=== PATIENT | female | born 1960 | race Caucasian/White ===

== ENCOUNTER 2017-03-05 04:57 | Emergency (ER) | payer BC ==
[2017-03-05 05:24] VITALS: BMI 38.9
--- NOTE | 2017-03-05 05:43 | PDOC ---
History of Present Illness - General History Source: Patient Exam Limitations: No Limitations <Carmel Landrum - Last Filed: 03/05/17 05:51> - General History Source: Patient <Forrest Wasserman - Last Filed: 03/05/17 19:37> - General Chief Complaint: Palpitations Stated Complaint: PALPITATIONS Time Seen by Provider: 03/05/17 05:43 - History of Present Illness Initial Comments: 03/05/17 05:49 Patient is a 56 year old female with pmhx of HTN who presents to the ED with palpitations. Patient states that she awoke from her sleep with pressure like sensation localized to her mid sternum that developed into palpitations. Symptoms have resolved on their own but she notes that she experienced the following symptoms 2-3 times before but she never followed up with a cyber security analyst or PMD. She states that she presented today because she became concerned. Patient states that she is compliant with her hypertension medication. (Carmel Landrum) Past History <Carmel Landrum - Last Filed: 03/05/17 05:51> - Suicide/Smoking/Psychosocial Hx Smoking History: Never smoked Have you smoked in the past 12 months: No Information on smoking cessation initiated: No Hx Alcohol Use: No Drug/Substance Use Hx: No <Forrest Wasserman - Last Filed: 03/05/17 19:37> - Past Medical History Allergies/Adverse Reactions: Allergies Allergy/AdvReac Type Severity Reaction Status Date / Time No Known Allergies Allergy Verified 03/05/17 05:22 Home Medications: Ambulatory Orders Levothyroxine [Synthroid -] 88 mcg PO DAILY 03/05/17 Metoprolol ER-Hctz 100-12.5 mg 10 mg PO DAILY 03/05/17 Review of Systems - Review of Systems Able to Perform ROS?: Yes <Carmel Landrum - Last Filed: 03/05/17 05:51> <Forrest aWsserman - Last Filed: 03/05/17 19:37> - Review of Systems Comments:: 03/05/17 05:50 CONSTITUTIONAL: Absent: fever, chills, diaphoresis, generalized weakness, malaise, loss of appetite HEENT: Absent: rhinorrhea, nasal congestion, throat pain, throat swelling, difficulty swallowing, mouth swelling, ear pain, eye pain, visual Changes CARDIOVASCULAR: Present: palpitations Absent: chest pain, syncope, irregular heart rate, lightheadedness, peripheral edema RESPIRATORY: Absent: cough, shortness of breath, dyspnea with exertion, orthopnea, wheezing, stridor, hemoptysis GASTROINTESTINAL: Absent: abdominal pain, abdominal distension, nausea, vomiting, diarrhea, constipation, melena, hematochezia GENITOURINARY: Absent: dysuria, frequency, urgency, hesitancy, hematuria, flank pain, genital pain MUSCULOSKELETAL: Absent: myalgia, arthralgia, joint swelling SKIN: Absent: rash, itching, pallor HEMATOLOGIC/IMMUNOLOGIC: Absent: easy bleeding, easy bruising, lymphadenopathy, frequent infections ENDOCRINE: Absent: unexplained weight gain, unexplained weight loss, heat intolerance, cold intolerance NEUROLOGIC: Absent: headache, focal weakness or paresthesias, dizziness, unsteady gait, seizure, mental status changes, bladder or bowel incontinence PSYCHIATRIC: Absent: anxiety, depression, suicidal or homicidal ideation, hallucinations. (Carmel Landrum) *Physical Exam <Carmel Landrum - Last Filed: 03/05/17 05:51> <Forrest Wasserman - Last Filed: 03/05/17 19:37> - Vital Signs Last Vital Signs Temp Pulse Resp BP Pulse Ox 98.4 F 86 19 138/98 96 03/05/17 10:14 03/05/17 10:14 03/05/17 10:14 03/05/17 10:14 03/05/17 10:14 - Physical Exam Comments: 03/05/17 05:50 GENERAL: Well developed, well nourished. Awake and alert. In no acute distress. HEENT: Normocephalic, atraumatic. PERRLA, EOMI. No conjunctival pallor. Sclerae are non -icteric. Moist mucous membranes. Oropharynx is clear. NECK: Supple. Full ROM. No JVD. Carotid pulses 2+ and symmetric, without bruits. No thyromegaly. No lymphadenopathy. CARDIOVASCULAR: Regular rate and rhythm. No murmurs, rubs, or gallops. Distal pulses are 2+ and symmetric. PULMONARY: No evidence of respiratory distress. Lungs clear to auscultation bilaterally. No wheezing, rales or rhonchi. ABDOMINAL: Soft. Non-tender. Non-distended. No rebound or guarding. No organomegaly. Normoactive bowel sounds. MUSCULOSKELETAL Normal range of motion at all joints. No bony deformities or tenderness. No CVA tenderness. EXTREMITIES: No cyanosis. No clubbing. No edema. No calf tenderness. SKIN: Warm and dry. Normal capillary refill. No rashes. No jaundice. NEUROLOGICAL: Alert, awake, appropriate. Cranial nerves 2-12 intact. No deficits to light touch and temperature in face, upper extremities and lower extremities. No motor deficits in the in face, upper extremities and lower extremities. Normoreflexic in the upper and lower extremities. Normal speech. Toes are downgoing bilaterally. Gait is normal without ataxia PSYCHIATRIC: Cooperative. Good eye contact. Appropriate mood and affect. (Carmel Landrum) ED Treatment Course <Carmel Landrum - Last Filed: 03/05/17 05:51> - LABORATORY CBC & Chemistry Diagram: 03/05/17 06:32 03/05/17 08:07 <Forrest Wasserman - Last Filed: 03/05/17 19:37> - ADDITIONAL ORDERS Additional order review: Laboratory Results 03/05/17 03/05/17 03/05/17 08:07 07:32 07:32 Sodium 139 Cancelled Potassium 4.2 Cancelled Chloride 103 Cancelled Carbon Dioxide 25 Cancelled Anion Gap 11 Cancelled BUN 11 Cancelled Creatinine 0.7 Cancelled Creat Clearance w eGFR > 60 Cancelled Random Glucose 163 H Cancelled Calcium 9.0 Cancelled Total Bilirubin 0.6 Cancelled AST 21 Cancelled ALT 38 Cancelled Alkaline Phosphatase 159 H Cancelled Creatine Kinase 115 Troponin I < 0.02 Total Protein 7.5 Cancelled Albumin 4.1 Cancelled Total Amylase Cancelled Lipase 87 Cancelled Urine Color Urine Appearance Urine pH Ur Specific Otis Urine Protein Urine Glucose (UA) Urine Ketones Urine Blood Urine Nitrite Urine Bilirubin Urine Urobilinogen Urine RBC Urine WBC Ur Epithelial Cells Urine Bacteria Urine Mucus 03/05/17 06:32 Sodium Potassium Chloride Carbon Dioxide Anion Gap BUN Creatinine Creat Clearance w eGFR Random Glucose Calcium Total Bilirubin AST ALT Alkaline Phosphatase Creatine Kinase Troponin I Total Protein Albumin Total Amylase Lipase Urine Color Straw Urine Appearance Clear Urine pH 8.0 Ur Specific Otis 1.020 Urine Protein 2+ H Urine Glucose (UA) Negative Urine Ketones Negative Urine Blood 1+ H Urine Nitrite Negative Urine Bilirubin Negative Urine Urobilinogen Negative Urine RBC 2 Urine WBC 2 Ur Epithelial Cells Few Urine Bacteria Rare Urine Mucus Rare 03/05/17 06:32 RBC 4.85 MCV 86.1 MCHC 34.7 RDW 13.4 MPV 7.6 Neutrophils % 68.4 Lymphocytes % 22.1 Monocytes % 6.2 Eosinophils % 2.1 Basophils % 1.2 - RADIOLOGY Radiology Studies Ordered: Category Date Time Status CHEST X-RAY PORTABLE* [RAD] Stat Radiology 03/05/17 06:17 Completed 03/05/17 05:51 NS at 96 bpm Possible left atrial enlargement Prolonged QT Abnormal ECG (Carmel Landrum) Medical Decision Making <Carmel Landrum - Last Filed: 03/05/17 05:51> <Forrest Wasserman - Last Filed: 03/05/17 19:37> - Medical Decision Making 03/05/17 19:35 Dr. Wasserman: The scribe's documentation has been prepared under my direction and personally reviewed by me in its entirery. I confirm that the note above accurately reflects all work, treatment, procedures, and medical decision making performed by me. (Forrest Wasserman) *DC/Admit/Observation/Transfer <Carmel Landrum - Last Filed: 03/05/17 05:51> - Discharge Dispostion Admit: No <Forrest Wasserman - Last Filed: 03/05/17 19:37> Diagnosis at time of Disposition: Palpitations - Discharge Dispostion Disposition: HOME Condition at time of disposition: Good - Patient Instructions Printed Discharge Instructions: DI for Palpitations Additional Instructions: You were evaluated in the Emergency Department for palpitations. Please call [facility] at within the next 7 days to make an appointment with a doctor to establish primary care and for referral to a cyber security analyst. Please return to the Emergency Department should you experience a worsening of your symptoms, or chest pain or severe discomfort. - Attestations Scribe Attestion: 03/05/17 05:51 Documentation prepared by VICTOR HUGO Lambert, acting as medical coder for Forrest Wasserman DO. (Carmel Landrum)
[2017-03-05 06:55] LABS: BASOPHIL 1.2 % (0-2.0); EOSINOPHIL 2.1 % (0-4.5); MCH 29.9 pg (25.7-33.7); MCHC 34.7 g/dl (32.0-36.0); MEAN CELL VOLUME 86.1 fl (80-96); MEAN PLT VOLUME 7.6 fl (7.5-11.1); NEUTROPHILS 68.4 % (42.8-82.8); PLATELET COUNT 259 K/MM3 (134-434); RDW 13.4 % (11.6-15.6); URINE APPEARANCE CLEAR; URINE BILIRUBIN NEGATIVE (NEGATIVE); URINE BLOOD 1+ (NEGATIVE); URINE COLOR STRAW; URINE GLUCOSE (UA) NEGATIVE (NEGATIVE); URINE KETONE NEGATIVE (NEGATIVE); URINE LEUK ESTERASE NEGATIVE (NEGATIVE); URINE NITRITE NEGATIVE (NEGATIVE); URINE UROBILINOGEN NEGATIVE mg/dL (0.2-1.0); WHITE BLOOD COUNT 8.4 K/mm3 (4.0-10.0)
[2017-03-05 07:07] LABS: URINE PROTEIN 2+ (NEGATIVE)
[2017-03-05 07:23] LABS: INR 0.96 (0.82-1.09); PROTHROMBIN TIME (PATIENT) 10.6 SEC (9.98-11.88)
--- NOTE | 2017-03-05 07:29 | PDOC ---
*Physical Exam - Vital Signs Last Vital Signs Temp Pulse Resp BP Pulse Ox 98.0 F 100 H 18 134/121 97 03/05/17 05:22 03/05/17 05:22 03/05/17 05:22 03/05/17 05:22 03/05/17 05:22 - Physical Exam General Appearance: Yes: Nourished, Obese HEENT: positive: EOMI, DARIN Neck: positive: Trachea midline, Supple Respiratory/Chest: positive: Lungs Clear Cardiovascular: positive: Regular Rhythm, Regular Rate, S1, S2 Gastrointestinal/Abdominal: positive: Soft Extremity: positive: Normal Capillary Refill, Normal Inspection Neurologic: positive: Fully Oriented, Alert ED Treatment Course - LABORATORY CBC & Chemistry Diagram: 03/05/17 06:32 03/05/17 08:07 - ADDITIONAL ORDERS Additional order review: Laboratory Results 03/05/17 03/05/17 03/05/17 06:32 06:32 06:32 PT with INR INR Sodium Cancelled Potassium Cancelled Chloride Cancelled Carbon Dioxide Cancelled Anion Gap Cancelled BUN Cancelled Creatinine Cancelled Creat Clearance w eGFR Cancelled Random Glucose Cancelled Calcium Cancelled Magnesium Cancelled Total Bilirubin Cancelled AST Cancelled ALT Cancelled Alkaline Phosphatase Cancelled Creatine Kinase Cancelled Troponin I Cancelled B-Natriuretic Peptide Cancelled Total Protein Cancelled Albumin Cancelled Total Amylase Cancelled Lipase Cancelled Urine Color Straw Urine Appearance Clear Urine pH 8.0 Urine Protein 2+ H Urine Glucose (UA) Negative Urine Ketones Negative Urine Blood 1+ H Urine Nitrite Negative Urine Bilirubin Negative Urine Urobilinogen Negative 03/05/17 06:32 PT with INR 10.60 INR 0.96 Sodium Potassium Chloride Carbon Dioxide Anion Gap BUN Creatinine Creat Clearance w eGFR Random Glucose Calcium Magnesium Total Bilirubin AST ALT Alkaline Phosphatase Creatine Kinase Troponin I B-Natriuretic Peptide Total Protein Albumin Total Amylase Lipase Urine Color Urine Appearance Urine pH Urine Protein Urine Glucose (UA) Urine Ketones Urine Blood Urine Nitrite Urine Bilirubin Urine Urobilinogen 03/05/17 06:32 RBC 4.85 MCV 86.1 MCHC 34.7 RDW 13.4 MPV 7.6 Neutrophils % 68.4 Lymphocytes % 22.1 Monocytes % 6.2 Eosinophils % 2.1 Basophils % 1.2 Medical Decision Making - Medical Decision Making 03/05/17 07:28 Patient resting comfortably, states palpitations have resolved completely. 03/05/17 09:44 Troponin (-) x1, CMP shows no electrolyte abnormalities. Mildly elevated BS ( 163) Patient counseled extensively on importance of establishing primary care and given a copy of her labs to bring to her PCP appointment. Patient counseled to return to ED should she experience repeat palpitations, shortness of breath or chest pain. *DC/Admit/Observation/Transfer Diagnosis at time of Disposition: Palpitations - Discharge Dispostion Disposition: HOME Condition at time of disposition: Good Admit: No - Patient Instructions Printed Discharge Instructions: DI for Palpitations Additional Instructions: You were evaluated in the Emergency Department for palpitations. Please call [facility] at within the next 7 days to make an appointment with a doctor to establish primary care and for referral to a pharmacy technologist. Please return to the Emergency Department should you experience a worsening of your symptoms, or chest pain or severe discomfort.
[2017-03-05 08:45] LABS: URINE BACTERIA RARE /hpf (NONE SEEN); URINE MUCUS RARE; URINE WBC 2 /hpf (3-5)
[2017-03-05 08:47] LABS: URINE RBC 2 /hpf (0-3)
[2017-03-05 09:09] LABS: ALBUMIN 4.1 g/dl (3.4-5.0); ANION GAP 11 (8-16); BILIRUBIN,TOTAL 0.6 mg/dL (0.2-1.0); CO2 25 mmol/L (21-32); CREATININE 0.7 mg/dL (0.55-1.02); GLUCOSE,RANDOM 163 mg/dL (74-106); SGOT/AST 21 U/L (15-37); SGPT/ALT 38 U/L (12-78); TOT PROT 7.5 g/dl (6.4-8.2)
[2017-03-05 09:12] LABS: ALK PHOS 159 U/L (45-117); CPK 115 IU/L (26-192); TROPONIN I < 0.02 ng/ml (0.00-0.05)
[2017-03-05 10:14] VITALS: BP 138/98; PULSE 86; TEMP 98.4
--- NOTE | 2017-03-05 10:41 | EKG ---
Test Reason : Blood Pressure : / mmHG Vent. Rate : 096 BPM Atrial Rate : 096 BPM P-R Int : 172 ms QRS Dur : 088 ms QT Int : 394 ms P-R-T Axes : 049 021 051 degrees QTc Int : 497 ms NORMAL SINUS RHYTHM POSSIBLE LEFT ATRIAL ENLARGEMENT PROLONGED QT ABNORMAL ECG NO PREVIOUS ECGS AVAILABLE Confirmed by TAI LEPE, NURYS ([id number]) on 03/05/2017 10:40:46 AM Referred By: Confirmed By:NURYS LUJAN MD
== END 2017-03-05 10:43 | disposition home or self-care (01) ==
LOC: JER 04:57
DX: R00.2 Palpitations (principal); I10 Essential (primary) hypertension
CPT/HCPCS: 36415; 71010-TC; 80053; 81003; 81015; 83690; 84484; 85025; 85610; 93005; 93010; 99282-25